=== PATIENT | male | born 1985 | race African-American/Black ===

== ENCOUNTER 2019-01-30 07:38 | Day surgery (SDC) | payer OTHER ==
[~2019-01-30] VITALS: Ht 177.8 cm; Wt 86.4 kg
[~2019-01-30 07:38] MED LIST: ALPRAZOLAM; ANTIBIOTIC; CEPHALEXIN500 M1 PO; EFFEXOR 50M50 MG/TAB PO; ESZOPICOLONE; LORTAB 5/500 501 TAB PO; MULTIPLE VITAMI1 CAP PO; NO HOME MEDICATIONS; NORCO 325 MG-51 TAB PO; PHENERGAN 25 TA25 MG PO; SEPTRA DS 8001 TAB PO; TOPIRAMATE; TYLENOL W/COD1 UDTAB PO; XANAX0.5 MG PO; [UNRECOGNIZED DRUG - REMARK]
[2019-01-30] MEDS ORDERED: XANAX 0.5MG0.5 MG PO (08:18)
[2019-01-30 08:23] VITALS: BP 140/75; PULSE 65; TEMP 97.7
[2019-01-30 11:19] VITALS: BP 116/60; PULSE 70; TEMP 97.6
--- NOTE | 2019-01-30 11:19 | NUR ---
Patient arrives to [facility] – [place] [address] for recovery, accompanied by RIDE ATTENDANT and AUTOTRANSFUSIONIST. Patient is sitting up in bed, alert and oriented, thanking staff for their care. He denies any pain or nausea. His operative site is clean, dry, intact. Monitoring applied - VSS and WNL on room air. His fiance is brought to the bedside. Patient is offered and receives water to drink. He refuses any more PO. Call light in reach.
[2019-01-30] MEDS ORDERED: MOTRIN 600600 MG/TAB PO (11:23)
[2019-01-30] MEDS ORDERED: NORCO 325 MG-51 TAB PO (11:23)
[2019-01-30 11:34] VITALS: BP 129/58; PULSE 71
--- NOTE | 2019-01-30 11:34 | NUR ---
Patient is resting comfortably in room. He is eager to go home, stating he wants to "get out of here to go eat real food". VSS and WNL on room air. Tolerating PO well. Denies pain.
[2019-01-30 11:49] VITALS: BP 106/66; PULSE 83
--- NOTE | 2019-01-30 11:49 | NUR ---
VSS and WNL on room air. Patient has changed to clothing. Denies any pain or nausea. He has met discharge criteria. Will return with discharge papers.
--- NOTE | 2019-01-30 12:03 | NUR ---
Discharge instructions discussed, denies any questions, and verbalizes understanding. PIV removed with catheter intact and hemostasis achieved. Patient given paper prescription for norco and motrin. Patient escorted to exit via wheelchair. Discharged to home with ride in private vehicle at 1203.
== END 2019-01-30 12:03 | disposition home or self-care (01) ==
LOC: SDCO 07:38
DX: D17.1 Benign lipomatous neoplasm of skin and subcutaneous tissue of trunk (principal); G47.33 Obstructive sleep apnea (adult) (pediatric); F41.9 Anxiety disorder, unspecified; Z80.9 Family history of malignant neoplasm, unspecified; Z82.3 Family history of stroke; Z83.3 Family history of diabetes mellitus; Z96.652 Presence of left artificial knee joint
CPT/HCPCS: J0690; J1100; J1885; J2250; J2405; J2704; J3010; J7120